=== PATIENT | male | born 1955 | race Caucasian/White ===

== ENCOUNTER → 2023-01-28 | Outpatient (CLI) | payer BC, MEDICAID | END | disposition home or self-care (01) | LOC: RAD 10:35 | PROVIDERS: ATTEND Surgery | DX: K44.9 Diaphragmatic hernia without obstruction or gangrene (principal); K22.4 Dyskinesia of esophagus | CPT/HCPCS: 74220 ==

== ENCOUNTER 2023-02-12 07:23 | Day surgery (SDC) | payer BC, MEDICAID ==
[2023-02-08 12:14] LABS: BASOPHILS # (AUTO) 0.1 X10'3 (0-0.2); BASOPHILS % (AUTO) 0.9 % (0-1); EOSINOPHILS # (AUTO) 0.2 X10'3 (0-0.9); EOSINOPHILS % (AUTO) 2.1 % (0-6); LYMPHOCYTES # (AUTO) 2.5 X10'3 (1.1-4.8); LYMPHOCYTES % (AUTO) 26.8 % (21-51); MEAN CORPUSCULAR HEMOGLOBIN 29.2 PG (27.0-31.0); MEAN CORPUSCULAR HGB CONC 33.6 g/dL (33.0-36.5); MEAN PLATELET VOLUME 7.7 FL (7.4-10.4); MONOCYTES # (AUTO) 0.7 X10'3 (0-0.9); MONOCYTES % (AUTO) 7.8 % (2-12); NEUTROPHILS # (AUTO) 5.7 X10'3 (1.8-7.7); NEUTROPHILS % (AUTO) 62.4 % (42-75); PRE OP HEMATOCRIT 43.7 % (42.0-52.0); PRE OP HEMOGLOBIN 14.7 g/dL (14.0-17.9); PRE OP PLATELET COUNT 258 X10'3 (140-440); RED BLOOD COUNT 5.02 X10'6 (4.70-6.10); RED CELL DISTRIBUTION WIDTH 13.4 % (11.5-14.5)
[2023-02-08 12:40] LABS: ALBUMIN 3.5 G/DL (3.4-5.0); ALBUMIN/GLOBULIN RATIO 0.9 (1.1-1.5); ALKALINE PHOSPHATASE 43 IU/L (46-116); BLOOD UREA NITROGEN 14 MG/DL (7-18); BUN/CREATININE RATIO 13.2 (5.4-32.0); CALCIUM 9.5 MG/DL (8.5-10.1); CHLORIDE 104 MMOL/L (99-107); CREATININE 1.06 MG/DL (0.60-1.10); PRE OP ALT 20 U/L (30-65); PRE OP ANION GAP 8 (8-16); PRE OP AST 17 U/L (10-37); PRE OP BILIRUB, TOTAL 0.4 MG/DL (0.0-1.0); PRE OP GLUCOSE 97 MG/DL (70-104); PRE OP POTASSIUM 3.8 MMOL/L (3.4-5.1); PRE OP SODIUM 140 MMOL/L (135-145); TOTAL CARBON DIOXIDE 27.7 MMOL/L (24-32); TOTAL PROTEIN 7.6 G/DL (6.4-8.2); eGFR 69 ML/MIN
[~2023-02-12] VITALS: Ht 160 cm; Wt 68.2 kg
[2023-02-12] VITALS (12 sets, daily range): BP systolic 99–160; BP diastolic 61–78
[~2023-02-12 07:23] MED LIST: ASCO500C12 PO; CA C1TAB89 PO; IRON18TA PO; MELA10TA2 PO; MULT-1141 PO; PANT-47 PO; SAW1CAPS5 PO; TRAZ150T78 PO; cefazolin 2gm/D5W 100mL 100 ML IV ONE; famotidine 20mg tablet PO ONE; ringers solution, lacted 1,000 ML IV SCH
[2023-02-12] MEDS ORDERED: BUPIVAcaine/PF 2.5 mg/ml (0.25%) 30ml vial ONE (09:15)
[2023-02-12] MEDS ORDERED: LIDOcaine 1% 30ml preserv. free vial ONE (09:15)
[2023-02-12] MEDS ORDERED: sevoflurane 250ml liquid IH ONE (09:29)
[2023-02-12] MEDS ORDERED: fentaNYL/PF 50MCG/1 ML 2ML syringe ONE (09:34)
[2023-02-12] MEDS ORDERED: midazolam 1 mg/ML 2ml injection ONE (09:35)
[2023-02-12] MEDS ORDERED: meperidine/PF 25mg/ml syringe IV PRN ×2 (10:20)
[2023-02-12] MEDS ORDERED: proCHLORperazine 10 MG/2 ml inj IV PRN (10:20)
[2023-02-12] MEDS ORDERED: morphine 4 MG/ML inj SYRINge IV PRN (10:20)
[2023-02-12] MEDS ORDERED: ringers solution, lacted 1,000 ML IV SCH (10:20)
[2023-02-12] MEDS ORDERED: ondansetron/PF 4mg/2ml inj IV PRN (10:20)
[2023-02-12] MEDS ORDERED: morphine 2 MG/ML inj. syringe IV PRN (10:20)
[2023-02-12] MEDS ORDERED: ondansetron/PF 4mg/2ml inj ONE (10:21)
[2023-02-12] MEDS ORDERED: LIDOcaine 2% (20mg/ml) 5ml vial ONE (10:21)
[2023-02-12] MEDS ORDERED: rocuronium 10mg/ml inj IV ONE (10:21)
[2023-02-12] MEDS ORDERED: dexamethasone sod phosphate 4mg/ml inj. ONE (10:22)
[2023-02-12] MEDS ORDERED: sugammadex 200mg/2ml injection IV ONE (10:22)
[2023-02-12] MEDS ORDERED: propofol inj 20 ML IV ONE (10:22)
[2023-02-12] MEDS ORDERED: meperidine/PF 25mg/ml syringe ONE (10:45)
--- NOTE | 2023-02-12 10:46 | NUR ---
Received from OR via TRAN, accompanied by Anesthesiologist DR BUCK and report given by Anesthesiologist AND ASBESTOS ABATEMENT TECHNICIAN. PT DROWSY, NO S/S OF DISTRESS/DISCOMFORT. ABDOMEN W/3 LAP SITES, LATERAL SITES W/XIAO CDI, MIDDLE SITE W/[place]WT[place] ABAD CDI. Addendum: 02/12/23 at 1143 by Marilyn Baker RN Amended: Links added.
[2023-02-12] MEDS: meperidine/PF 25mg/ml syringe IV PRN ×2 (11:04→11:17)
[2023-02-12] MEDS ORDERED: traMADol 50MG tablet PO PRN (11:15)
[2023-02-12] MEDS ORDERED: HYDROcodone/acetaminophen 5mg/325mg tablet PO PRN (11:15)
--- NOTE | 2023-02-12 13:26 | NUR ---
PT UP AND ABLE TO AMBULATE, VOIDED LARGE AMOUNT. PAIN MEDICATION GIVEN, D/C INSTRUCTIONS GIVEN AND GONE OVER W/PT WHO VERBALIZED UNDERSTANDING. PT D/CD TO HOME VIA W/C TO PRIVATE VEHICLE W/O INCIDENT. Addendum: 02/12/23 at 1347 by Marilyn Baker RN Amended: Links added. Addendum: 02/12/23 at 1521 by Marilyn Baker RN LATE ENTRY, PT BLADDER SCANNED POST VOID, 7 ML REMAINED IN BLADDER PER BLADDER SCANNER. PT INFORMED TO VOID WHENEVER HE HAD THE URGE AND NOT TO HOLD VOIDING, ALSO INSTRUCTED IF UNABLE TO VOID WITHIN 7-8 HOURS HE WOULD NEED TO RETURN TO THE ER FOR PRESSLEY CATHETER PLACEMENT.
== END 2023-02-12 13:26 | disposition home or self-care (01) ==
LOC: PAS 07:23
PROVIDERS: ATTEND Surgery
DX: K40.90 Unilateral inguinal hernia, without obstruction or gangrene, not specified as recurrent (principal); K42.9 Umbilical hernia without obstruction or gangrene; J45.909 Unspecified asthma, uncomplicated; G47.00 Insomnia, unspecified; B18.2 Chronic viral hepatitis C; F41.9 Anxiety disorder, unspecified; K21.9 Gastro-esophageal reflux disease without esophagitis; Z86.14 Personal history of Methicillin resistant Staphylococcus aureus infection; Z88.8 Allergy status to other drugs, medicaments and biological substances; Z96.641 Presence of right artificial hip joint; Z98.890 Other specified postprocedural states; Z87.891 Personal history of nicotine dependence; Z79.899 Other long term (current) drug therapy; Z82.61 Family history of arthritis; Z81.1 Family history of alcohol abuse and dependence
CPT/HCPCS: 36415; 49591; 49650; 80053; 82948; 85025; 93005; C1781; J0690; J1100; J2175; J2250; J2405; J2704; J3010; J3490; J7030; J7120; Z7506; Z7508; Z7512; A4215; A4618

== ENCOUNTER 2024-07-15 15:41 | Emergency (ER) | payer BC, MEDICAID ==
[~2024-07-15] VITALS: Ht 160 cm; Wt 63.4 kg
[~2024-07-15 15:41] MED LIST changes: +CHOL100025 PO; +KRIL1CAP PO; -MULT-1141 PO; +PER5325T PO; +POTA99TA25; -TRAZ150T78 PO; -cefazolin 2gm/D5W 100mL 100 ML IV ONE; -famotidine 20mg tablet PO ONE; -ringers solution, lacted 1,000 ML IV SCH
[2024-07-15 16:54] LABS: BILIRUBIN,URINE NEGATIVE (Neg); CLARITY,URINE CLEAR (Clear); COLOR,URINE YELLOW (Yellow); GLUCOSE, URINE NEGATIVE (Neg); KETONES,URINE NEGATIVE (Neg); LEUKOCYTE ESTERASE ,URINE NEGATIVE (Neg); NITRITES, URINE NEGATIVE (Neg); OCCULT BLOOD,URINE NEGATIVE (Neg); PROTEIN,URINE NEGATIVE (Neg); UROBILINOGEN,URINE 0.2 E.U/dL (0.2-1.0)
[2024-07-15 16:55] LABS: BASOPHILS # (AUTO) 0.1 X10'3 (0-0.2); BASOPHILS % (AUTO) 0.5 % (0-1); EOSINOPHILS # (AUTO) 0.1 X10'3 (0-0.9); EOSINOPHILS % (AUTO) 1.6 % (0-6); HEMOGLOBIN 14.6 g/dl (14.0-17.9); LYMPHOCYTES # (AUTO) 2.4 X10'3 (1.1-4.8); LYMPHOCYTES % (AUTO) 25.6 % (21-51); MEAN CORPUSCULAR HGB CONC 32.5 g/dL (33.0-36.5); MEAN CORPUSCULAR VOLUME 89.3 FL (78-98); MEAN PLATELET VOLUME 7.6 FL (7.4-10.4); MONOCYTES # (AUTO) 0.9 X10'3 (0-0.9); MONOCYTES % (AUTO) 9.6 % (2-12); NEUTROPHILS # (AUTO) 5.8 X10'3 (1.8-7.7); NEUTROPHILS % (AUTO) 62.7 % (42-75); PLATELET COUNT 274 X10'3 (140-440); RED BLOOD COUNT 5.04 X10'6 (4.70-6.10); WHITE BLOOD COUNT 9.3 X10'3 (4.5-11.0)
[2024-07-15 17:04] LABS: UA COLLECTION TYPE CLN CATCH MIDSTREAM
[2024-07-15 17:11] LABS: ALANINE AMINOTRANSFERASE 30 U/L (12-78); ALBUMIN 3.6 G/DL (3.4-5.0); ALKALINE PHOSPHATASE 50 IU/L (46-116); ANION GAP 7 (8-16); ASPARTATE AMINO TRANSFERASE 19 U/L (10-37); BILIRUBIN,TOTAL 0.3 MG/DL (0.1-1.0); BLOOD UREA NITROGEN 13 MG/DL (7-18); BUN/CREATININE RATIO 15.3 (10.0-20.0); CHLORIDE 104 MMOL/L (99-107); CREATININE 0.85 MG/DL (0.60-1.10); GLUCOSE 93 MG/DL (70-104); LIPASE 76 U/L (16-77); POTASSIUM 4.1 MMOL/L (3.5-5.1); SODIUM 138 MMOL/L (135-145); TOTAL CARBON DIOXIDE 26.8 MMOL/L (24-32); TOTAL PROTEIN 7.1 G/DL (6.4-8.2); eCRCL 66 ML/MIN; eGFR 89 ML/MIN
[2024-07-15 20:54] VITALS: BP 108/68; PULSE 68; RESP 18; TEMP 97.4; O2SAT 98
== END 2024-07-15 20:57 | disposition home or self-care (01) ==
LOC: ER 15:42
DX: R10.31 Right lower quadrant pain (principal); Z88.8 Allergy status to other drugs, medicaments and biological substances; Z79.899 Other long term (current) drug therapy
CPT/HCPCS: 36415; 80053; 81003; 83690; 85025; 99285